=== PATIENT | male | born 1955 | race Caucasian/White ===

== ENCOUNTER → 2018-08-13 | Day surgery (SDC) | payer OTHER ==
[~2018-08-13] MED LIST: DEXILANT30 MG PO; FENTANYL CITRATE/PF 100MCG/2 ML INJ ONE; GLUCAGON FOR INJ 1 MG VIAL ONE; LIDOCAINE HCL 2% LOCAL INJ 5 ML SDV VIAL INJ ONE; LIPITOR20 MG; MIDAZOLAM HCL 2 MG/2 ML VIAL ONE; PROPOFOL IV EMULSION 10 MG/ML 50 ML VIAL ONE; ZETIA10 MG PO
--- NOTE | 2018-08-13 10:31 | Operative Report ---
DATE OF PROCEDURE: SURGEON: Simone Ann MD PROCEDURES: EGD and colonoscopy. 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 INDICATIONS FOR COLONOSCOPY: Surveillance colonoscopy, personal history of colon polyps. MEDICATIONS: The patient was done under MAC. Please see anesthesiologist's note. PROCEDURE IN DETAIL: With the patient in left lateral decubitus position, a flexible fiberoptic Olympus gastroscope was introduced into the esophagus under direct visualization without any difficulty. There was some patchy erythema noted in distal esophagus. The previously described nodularity and friability of the GE junction resolved, but no discernible Box's epithelium was noted? Secondary to re-epithelialization. Biopsies were obtained. The scope was then advanced with ease into the stomach. Mucosa overlying the antrum and the body revealed some patchy areas of erythema and low-grade to moderate edema and biopsies were obtained and sent to stain for H pylori. The pylorus was of normal contour and shape, was intubated with ease and the scope was advanced all the way to the second portion of the duodenum. The scope was then withdrawn slowly. Mucosa overlying the proximal second portion and duodenal bulb appeared to be within normal limits. The scope was then withdrawn back into the stomach and retroflexed. Mucosa overlying the fundus and cardia appeared to be within normal limits. The scope was then straightened out. The stomach was decompressed. The scope was subsequently withdrawn. The patient tolerated the procedure well. IMPRESSION: 1. Mild distal esophagitis. 2. Previously described friability and nodularity at the GE junction, resolved. No discernible Box's epithelium was noted on this exam? Secondary to re-epithelialization process. Biopsies were obtained. 3. Gastritis, biopsied. Biopsies sent to stain for H pylori. PLAN: Follow up histology. Continue Dexilant 60 mg one p.o. q.a.m. a.c. The patient was then turned around. After adequate lubrication of the anal canal, a flexible fiberoptic Olympus colonoscope was inserted into the rectum with ease and advanced all the way to the cecum. It was then withdrawn slowly. Mucosa overlying the cecum, ascending colon, transverse and descending appeared to be within normal limits. Some diverticular disease was noted in the sigmoid colon. Mucosa overlying the rectum appeared to be within normal limits. The scope was then retroflexed into the distal rectum. Small internal hemorrhoids were noted, none of which was actively bleeding. The scope was then straightened out, it was subsequently withdrawn. The patient tolerated the procedure well. IMPRESSION: 1. Diverticulosis. 2. Internal hemorrhoids, none actively bleeding. PLAN: Initiate high-fiber low-fat diet. Initiate high-fiber supplement. The patient might benefit from a followup colonoscopy in 5 years. Simone Ann MD [facility] [place] /[id number] cc: MD Simone Galvan MD
== END | disposition home or self-care (01) ==
LOC: OR 06:02
PROVIDERS: ATTEND Internal Medicine Gastroenterology
DX: K59.00 Constipation, unspecified (principal); K29.70 Gastritis, unspecified, without bleeding; K21.0 Gastro-esophageal reflux disease with esophagitis; K57.30 Diverticulosis of large intestine without perforation or abscess without bleeding; K64.8 Other hemorrhoids; G47.30 Sleep apnea, unspecified; Z01.810 Encounter for preprocedural cardiovascular examination; Z87.891 Personal history of nicotine dependence
CPT/HCPCS: 43239; 45378; 93005; J1610; J2001; J2250; J2704

== ENCOUNTER → 2023-08-30 | Day surgery (SDC) | payer OTHER ==
[2023-08-25 13:34] LABS: BASOPHILS # (AUTO) 0.1 (0.0-0.1); EOSINOPHILS # (AUTO) 0.1 (0.0-0.4); EOSINOPHILS % 1.3 % (0.0-6.0); HEMATOCRIT 39.6 % (38.2-49.6); HEMOGLOBIN 14.3 g/dL (14.0-18.0); LYMPHOCYTES # (AUTO) 1.7 (1.0-3.2); LYMPHOCYTES % 28.3 % (18.0-39.1); MEAN CORPUSCULAR HGB CONC 36.1 g/dL (31-35); MEAN CORPUSCULAR VOLUME 85.7 fL (81-99); MONOCYTES # (AUTO) 0.5 (0.2-0.8); MONOCYTES % 8.4 % (4.4-11.3); NEUTROPHILS # (AUTO) 3.6 (2.1-6.9); NEUTROPHILS % 60.8 % (38.7-80.0); PLATELET COUNT 200 x10e3/uL (140-360); RED BLOOD COUNT 4.62 x10e6/uL (4.3-5.7); RED CELL DISTRIBUTION WIDTH 13.2 % (11.7-14.4); WHITE BLOOD COUNT 5.94 x10e3/uL (4.8-10.8)
[~2023-08-30] MED LIST changes: +ACIPHEX20 MG PO; +CIALIS5 MG PO; -FENTANYL CITRATE/PF 100MCG/2 ML INJ ONE; -GLUCAGON FOR INJ 1 MG VIAL ONE; +HYOSCYAMINE SULFATE 0.5 MG/ML INJ ONE; -MIDAZOLAM HCL 2 MG/2 ML VIAL ONE; +MULTIVITAMIN1 EACH PO; +PROPOFOL IV EMULSION 10 MG/ML 20 ML VIAL ONE; +PROPOFOL IV EMULSION 10 MG/ML 50 ML VIAL IV ONE; -PROPOFOL IV EMULSION 10 MG/ML 50 ML VIAL ONE; +SIMETHICONE 40 MG/0.6 ML BTL ONE; +SUDAFED 12 HOU120 MG PO
[2023-08-30] MEDS: LACTATED RINGER'S 1,000 ML ONE (06:19)
[2023-08-30 08:34] VITALS: TEMP 97.3
[2023-08-30 08:54] VITALS: BP 121/82; PULSE 54; RESP 18; O2SAT 99
== END | disposition home or self-care (01) ==
LOC: OR 05:47
PROVIDERS: ATTEND Internal Medicine Gastroenterology
DX: K29.70 Gastritis, unspecified, without bleeding (principal); Z86.010 Personal history of colon polyps; K31.7 Polyp of stomach and duodenum; K20.90 Esophagitis, unspecified without bleeding; K21.9 Gastro-esophageal reflux disease without esophagitis; K57.30 Diverticulosis of large intestine without perforation or abscess without bleeding; K64.8 Other hemorrhoids; G47.33 Obstructive sleep apnea (adult) (pediatric); E78.5 Hyperlipidemia, unspecified; Z01.810 Encounter for preprocedural cardiovascular examination; Z01.812 Encounter for preprocedural laboratory examination; Z79.899 Other long term (current) drug therapy
CPT/HCPCS: 36415; 43239; 45378; 85025; 93005; C9113; J1980; J2001; J2704 ×2; J7121